=== PATIENT | female | born 1945 | race Caucasian/White ===

== ENCOUNTER 2018-03-04 23:38 | Inpatient (IN) | payer MEDICARE, OTHER ==
[~2018-03-04] VITALS: Ht 165.1 cm; Wt 86.8 kg
[~2018-03-04 23:38] MED LIST: ACET-1600 PO; ASPI325T17 PO; GABA300C10 PO; GABA600T2 PO; HYDR-3240 PO
[2018-03-05] MEDS ORDERED: SODIUM CHLORIDE 0.9% 1,000ML IVBOLUS ONE (00:30)
[2018-03-05] MEDS ORDERED: FAMOTIDINE 20 MG/2 ML IVP ONE (00:30)
[2018-03-05] MEDS ORDERED: ONDANSETRON ODT 4 MG PO ONE (00:30)
[2018-03-05] MEDS ORDERED: SODIUM CHLORIDE FLUSH 10ML SYR IVF ONE (00:30)
[2018-03-05 00:48] LABS: BASOPHILS # (AUTO) 0.05 x10^3/uL (0-0.1); BASOPHILS % (AUTO) 0 % (0-1); EOSINOPHILS # (AUTO) 0.04 x10^3/uL (0-0.4); EOSINOPHILS % (AUTO) 0 % (1-7); LYMPHOCYTES # (AUTO) 0.92 x10^3/uL (1-3.4); LYMPHOCYTES % (AUTO) 7 % (22-44); MD NO; MEAN CORPUSCULAR HEMOGLOBIN 30.4 pg (27.0-34.8); MEAN CORPUSCULAR HGB CONC 33.5 g/dL (32.4-35.8); MEAN CORPUSCULAR VOLUME 90.7 fL (80-100); MEAN PLATELET VOLUME 7.9 fL (7.4-10.4); MONOCYTES # (AUTO) 0.72 x10^3/uL (0.2-0.8); MONOCYTES % (AUTO) 5 % (2-9); NEUTROPHILS # (AUTO) 12.04 x10^3/uL (1.8-6.8); NEUTROPHILS % (AUTO) 87 % (42-75); PLATELET COUNT 311 x10^3/uL (130-400); RED BLOOD COUNT 4.85 x10^6/uL (3.82-5.3); RED CELL DISTRIBUTION WIDTH 13.9 % (9.6-15.2)
[2018-03-05 00:58] LABS: ALANINE AMINOTRANSFERASE 49 U/L (12-78); ALBUMIN 3.7 g/dL (3.4-5.0); ANION GAP 3 mmol/L (5-15); CALCIUM 9.1 mg/dL (8.5-10.1); CHLORIDE 105 mmol/L (98-107); CREATININE 0.88 mg/dL (0.55-1.02)
[2018-03-05 01:00] LABS: ALKALINE PHOSPHATASE 124 U/L (45-117); BILIRUBIN,TOTAL 1.1 mg/dL (0.2-1.0); TOTAL PROTEIN 7.1 g/dL (6.4-8.2)
[2018-03-05] MEDS ORDERED: ONDANSETRON ODT 4 MG ONE (01:28)
[2018-03-05 02:30] LABS: CULTURE INDICATED? YES; MICROSCOPIC INDICATED
[2018-03-05] MEDS ORDERED: FAMOTIDINE 20 MG/2 ML ONE (02:35)
[2018-03-05] MEDS ORDERED: ATOR10TA9 PO (02:47)
[2018-03-05] MEDS ORDERED: SODIUM CHLORIDE 0.9% 1,000 ML IV ONE (02:47)
[2018-03-05] MEDS ORDERED: POLYETHYLENE GLYCOL 17 GM PACKET PO PRN (03:00)
[2018-03-05] MEDS ORDERED: hydrALAzine 20 MG/ML, 1ML IVPush PRN (03:00)
[2018-03-05] MEDS ORDERED: DOCUSATE 100 MG CAPSULE PO PRN (03:00)
[2018-03-05] MEDS ORDERED: OXYcodone IR 5MG TABLET PO PRN (03:00)
[2018-03-05] MEDS ORDERED: SODIUM CHLORIDE FLUSH 10ML SYR IVF PRN (03:00)
[2018-03-05] MEDS ORDERED: PROMETHAZINE 25 MG/ML, 1ML IM PRN (03:00)
[2018-03-05] MEDS ORDERED: LABETALOL 5MG/ML, 20ML IVPush PRN (03:00)
[2018-03-05] MEDS ORDERED: ONDANSETRON 2MG/ML, 2ML IVPush PRN (03:00)
[2018-03-05] MEDS ORDERED: BISACODYL 10 MG SUPP PR PRN (03:00)
[2018-03-05 03:22] VITALS: BP 135/78
[2018-03-05 03:39] LABS: FREE T4 (FREE THYROXINE) 1.38 ng/dL (0.76-1.46); THYROID STIMULATING HORMONE 4.41 mIU/L (0.358-3.740)
[2018-03-05] MEDS: SODIUM CHLORIDE 0.9% 1,000 ML IV SCH ×3 (03:44→20:41)
[2018-03-05 04:02] LABS: HEMOGLOBIN A1C 6.2 % (4.2-6.3)
[2018-03-05] MEDS: HEPARIN 5,000 UNITS/ML, 1ML SQ SCH ×3 (06:09→22:29)
[2018-03-05 09:18] VITALS: BP 143/75
[2018-03-05 10:05] LABS: TRIGLYCERIDES 107 mg/dL (50-200)
[2018-03-05 19:49] VITALS: BP 148/78
[2018-03-05] MEDS: GABAPENTIN 300 MG CAPSULE PO SCH (20:46)
[2018-03-06 01:48] VITALS: BP 129/71
[2018-03-06] MEDS: SODIUM CHLORIDE 0.9% 1,000 ML IV SCH ×2 (02:45→09:47)
[2018-03-06 04:30] LABS: BASOPHILS # (AUTO) 0.01 x10^3/uL (0-0.1); BASOPHILS % (AUTO) 0 % (0-1); EOSINOPHILS % (AUTO) 0 % (1-7); LYMPHOCYTES % (AUTO) 7 % (22-44); MD NO; MEAN CORPUSCULAR HEMOGLOBIN 30.5 pg (27.0-34.8); MEAN CORPUSCULAR HGB CONC 33.8 g/dL (32.4-35.8); MONOCYTES % (AUTO) 9 % (2-9); NEUTROPHILS % (AUTO) 84 % (42-75); PLATELET COUNT 250 x10^3/uL (130-400); RED BLOOD COUNT 4.21 x10^6/uL (3.82-5.3); RED CELL DISTRIBUTION WIDTH 14.2 % (9.6-15.2)
[2018-03-06 04:37] LABS: CHLORIDE 110 mmol/L (98-107)
[2018-03-06 04:46] LABS: ALANINE AMINOTRANSFERASE 206 U/L (12-78); ALBUMIN 2.8 g/dL (3.4-5.0); ALKALINE PHOSPHATASE 218 U/L (45-117); ANION GAP 5 mmol/L (5-15); CALCIUM 7.8 mg/dL (8.5-10.1); CHOLESTEROL, TOTAL 86 mg/dL (140-239); CREATININE 0.81 mg/dL (0.55-1.02); HDL CHOL % 51 % (28-40); HDL CHOLESTEROL (DIRECT) 44 mg/dL (40-60); LDL CHOLESTEROL,CALCULATED 21 mg/dL (54-169); LDL/HDL RATIO 0.5 (0.5-3.0); TOTAL PROTEIN 5.7 g/dL (6.4-8.2); TRIGLYCERIDES 106 mg/dL (50-200); VLDL CHOLESTEROL 21 mg/dL (0-25)
[2018-03-06] MEDS: HEPARIN 5,000 UNITS/ML, 1ML SQ SCH ×3 (05:57→22:45)
[2018-03-06 07:54] VITALS: BP 136/76
[2018-03-06 13:20] VITALS: BP 150/82
[2018-03-06 20:40] VITALS: BP 138/76
[2018-03-06] MEDS: GABAPENTIN 300 MG CAPSULE PO SCH (22:45)
[2018-03-07 02:50] VITALS: BP 146/84
[2018-03-07 04:40] LABS: BASOPHILS % (AUTO) 0 % (0-1); EOSINOPHILS # (AUTO) 0.01 x10^3/uL (0-0.4); EOSINOPHILS % (AUTO) 0 % (1-7); LYMPHOCYTES # (AUTO) 0.68 x10^3/uL (1-3.4); LYMPHOCYTES % (AUTO) 10 % (22-44); MD NO; MEAN CORPUSCULAR HEMOGLOBIN 29.9 pg (27.0-34.8); MEAN CORPUSCULAR VOLUME 90.5 fL (80-100); MONOCYTES # (AUTO) 0.57 x10^3/uL (0.2-0.8); MONOCYTES % (AUTO) 9 % (2-9); NEUTROPHILS # (AUTO) 5.24 x10^3/uL (1.8-6.8); NEUTROPHILS % (AUTO) 81 % (42-75); PLATELET COUNT 227 x10^3/uL (130-400); RED BLOOD COUNT 4.09 x10^6/uL (3.82-5.3); RED CELL DISTRIBUTION WIDTH 13.8 % (9.6-15.2)
[2018-03-07 04:52] LABS: ALANINE AMINOTRANSFERASE 153 U/L (12-78); ALBUMIN 2.7 g/dL (3.4-5.0); ANION GAP 10 mmol/L (5-15); CHLORIDE 110 mmol/L (98-107)
[2018-03-07 04:54] LABS: ALKALINE PHOSPHATASE 312 U/L (45-117); BILIRUBIN,TOTAL 1.2 mg/dL (0.2-1.0); CREATININE 0.68 mg/dL (0.55-1.02); TOTAL PROTEIN 5.9 g/dL (6.4-8.2)
[2018-03-07] MEDS: HEPARIN 5,000 UNITS/ML, 1ML SQ SCH (06:00)
[2018-03-07 06:36] LABS: INTERNATIONAL NORMALIZED RATIO 0.97 (0.93-1.1); PROTHROMBIN TIME 10.1 Seconds (9.6-11.5)
[2018-03-07 07:06] VITALS: BP 149/76
[2018-03-07] MEDS ORDERED: LACTATED RINGERS 1,000 ML IV SCH (07:30)
[2018-03-07 12:35] VITALS: BP 159/88
[2018-03-07 13:33] VITALS: BP 112/73
[2018-03-07] MEDS ORDERED: FENTANYL PF 250 MCG/5ML ONE (17:01)
[2018-03-07] MEDS ORDERED: SUCCINYLCHOLINE 20 MG/ML, 10ML ONE (17:02)
[2018-03-07] MEDS ORDERED: ROCURONIUM 10MG/ML,5ML ONE (17:02)
[2018-03-07] MEDS ORDERED: PROPOFOL 10 MG/ML, 20ML ONE (17:02)
[2018-03-07] MEDS ORDERED: THROMBIN 5,000 UNIT VIAL TP ONE (17:25)
[2018-03-07] MEDS ORDERED: BUPIVACAINE/PF-EPI 0.5% 1:200K ONE (17:25)
[2018-03-07] MEDS ORDERED: PROPOFOL 50 ML ONE (17:29)
[2018-03-07] MEDS ORDERED: CEFAZOLIN 1,000 MG ONE (17:37)
[2018-03-07] MEDS ORDERED: DEXAMETHASONE 4 MG/ML, 1ML ONE (17:37)
[2018-03-07] MEDS ORDERED: OXYcodone 5 MG/5 ML ORAL.SOL UDC PO PRN (18:30)
[2018-03-07] MEDS ORDERED: ONDANSETRON ODT 8 MG PO PRN (18:30)
[2018-03-07] MEDS ORDERED: PROCHLORPERAZINE 5 MG/ML, 2ML IV PRN (18:30)
[2018-03-07] MEDS ORDERED: MORPHINE SULFATE 4 MG/ML, 1ML IVPush PRN (18:30)
[2018-03-07] MEDS ORDERED: ACETAMINOPHEN 325 MG TABLET PO PRN (18:30)
[2018-03-07] MEDS ORDERED: DIPHENHYDRAMINE 50 MG/ML, 1ML IVPush PRN (18:30)
[2018-03-07] MEDS ORDERED: EPHEDRINE 50 MG/ML, 1ML IM PRN (18:30)
[2018-03-07] MEDS ORDERED: EPHEDRINE 50 MG/ML, 1ML IVPush PRN (18:30)
[2018-03-07] MEDS ORDERED: PROMETHAZINE 25 MG SUPP PR PRN (18:30)
[2018-03-07] MEDS ORDERED: PROMETHAZINE 25 MG/ML, 1ML IV PRN (18:30)
[2018-03-07] MEDS ORDERED: LABETALOL 5MG/ML, 20ML IV PRN (18:30)
[2018-03-07] MEDS ORDERED: MEPERIDINE/PF 25MG/0.5ML IVPush PRN (18:30)
[2018-03-07] MEDS ORDERED: PROMETHAZINE 12.5 MG SUPP PR PRN (18:30)
[2018-03-07] MEDS ORDERED: MIDAZOLAM 1 MG/ML, 2ML IV PRN (18:30)
[2018-03-07] MEDS ORDERED: FENTANYL PF 100 MCG/2ML ONE (18:41)
[2018-03-07] MEDS ORDERED: OXYcodone 5 MG/5 ML ORAL.SOL UDC ONE (18:41)
[2018-03-07] MEDS ORDERED: ACETAMINOPHEN 650 MG/20.3 ML UDC ONE (18:41)
[2018-03-07] MEDS: FENTANYL PF 100 MCG/2ML IV PRN ×2 (18:46→19:00)
[2018-03-07 19:30] VITALS: BP 141/66
[2018-03-07] MEDS: morphine SULFATE 10 MG/ML, 1ML IVPush PRN (19:45)
[2018-03-07] MEDS ORDERED: OXYcodone/APAP 5/325MG TABLET PO PRN (20:00)
[2018-03-07] MEDS: GABAPENTIN 300 MG CAPSULE PO SCH (21:00)
[2018-03-08 01:43] VITALS: BP 147/77
[2018-03-08] MEDS: morphine SULFATE 10 MG/ML, 1ML IVPush PRN ×2 (02:02→09:39)
[2018-03-08 04:59] LABS: BASOPHILS % (AUTO) 0 % (0-1); EOSINOPHILS % (AUTO) 0 % (1-7); LYMPHOCYTES # (AUTO) 0.49 x10^3/uL (1-3.4); LYMPHOCYTES % (AUTO) 4 % (22-44); MD NO; MEAN CORPUSCULAR HEMOGLOBIN 30.5 pg (27.0-34.8); MEAN CORPUSCULAR HGB CONC 33.6 g/dL (32.4-35.8); MEAN CORPUSCULAR VOLUME 90.8 fL (80-100); MEAN PLATELET VOLUME 8.1 fL (7.4-10.4); MONOCYTES # (AUTO) 0.76 x10^3/uL (0.2-0.8); MONOCYTES % (AUTO) 7 % (2-9); NEUTROPHILS # (AUTO) 10.02 x10^3/uL (1.8-6.8); NEUTROPHILS % (AUTO) 89 % (42-75); PLATELET COUNT 258 x10^3/uL (130-400); RED BLOOD COUNT 4.13 x10^6/uL (3.82-5.3); RED CELL DISTRIBUTION WIDTH 13.8 % (9.6-15.2)
[2018-03-08 05:15] LABS: ALBUMIN 2.6 g/dL (3.4-5.0); ANION GAP 6 mmol/L (5-15); CALCIUM 8.1 mg/dL (8.5-10.1); CHLORIDE 106 mmol/L (98-107)
[2018-03-08 05:19] LABS: CREATININE 0.79 mg/dL (0.55-1.02)
[2018-03-08 05:20] LABS: ALANINE AMINOTRANSFERASE 150 U/L (12-78); ALKALINE PHOSPHATASE 400 U/L (45-117); BILIRUBIN,TOTAL 0.7 mg/dL (0.2-1.0); TOTAL PROTEIN 6.3 g/dL (6.4-8.2)
[2018-03-08] MEDS: ONDANSETRON ODT 4 MG PO PRN ×2 (06:45→10:53)
[2018-03-08] MEDS ORDERED: SODIUM CHLORIDE 0.9% 1,000 ML IV SCH (09:00)
[2018-03-08 09:58] VITALS: BP_SYST 145; BP_SYST 148; BP_DIAS 79; BP_DIAS 80; BP_DIAS 81
[2018-03-08 15:57] VITALS: BP 151/81
[2018-03-08 19:15] VITALS: BP 150/82
[2018-03-08] MEDS: GABAPENTIN 300 MG CAPSULE PO SCH (21:00)
[2018-03-09 00:39] VITALS: BP 118/68
[2018-03-09 08:00] VITALS: BP 132/77
[2018-03-09 08:22] LABS: ANION GAP 4 mmol/L (5-15); CALCIUM 8.1 mg/dL (8.5-10.1); CHLORIDE 102 mmol/L (98-107); CREATININE 0.72 mg/dL (0.55-1.02)
[2018-03-09 08:24] LABS: BASOPHILS # (AUTO) 0.02 x10^3/uL (0-0.1); BASOPHILS % (AUTO) 0 % (0-1); EOSINOPHILS # (AUTO) 0.01 x10^3/uL (0-0.4); EOSINOPHILS % (AUTO) 0 % (1-7); LYMPHOCYTES # (AUTO) 0.91 x10^3/uL (1-3.4); LYMPHOCYTES % (AUTO) 13 % (22-44); MD SCAN; MEAN CORPUSCULAR HEMOGLOBIN 30.2 pg (27.0-34.8); MEAN CORPUSCULAR HGB CONC 33.5 g/dL (32.4-35.8); MEAN PLATELET VOLUME 7.6 fL (7.4-10.4); MONOCYTES # (AUTO) 0.65 x10^3/uL (0.2-0.8); MONOCYTES % (AUTO) 10 % (2-9); NEUTROPHILS # (AUTO) 5.21 x10^3/uL (1.8-6.8); NEUTROPHILS % (AUTO) 77 % (42-75); PLATELET COUNT 290 x10^3/uL (130-400); RED BLOOD COUNT 4.09 x10^6/uL (3.82-5.3); RED CELL DISTRIBUTION WIDTH 14.1 % (9.6-15.2)
[2018-03-09] MEDS ORDERED: POTASSIUM CHLORIDE 20 MEQ TAB.ER.PRT PO ONE (09:00)
[2018-03-09 13:24] LABS: ALBUMIN 2.8 g/dL (3.4-5.0)
[2018-03-09 13:28] LABS: BILIRUBIN, DIRECT 0.5 mg/dL (0.1-0.2); BILIRUBIN,INDIRECT 0.5 mg/dL (0.0-2.0); TOTAL PROTEIN 6.6 g/dL (6.4-8.2)
[2018-03-09] MEDS ORDERED: OXYC-302 PO (15:48)
[2018-03-09] MEDS ORDERED: POLY17PO5 PO (15:54)
== END 2018-03-09 16:17 | disposition home or self-care (01) | DRG 417 ==
LOC: ED 03-05 02:27 → 3NW 03-05 02:51 → DCLOUNGE 03-09 15:42
PROVIDERS: ADMIT Internal Medicine; ATTEND Internal Medicine
PROC: 0FT44ZZ Resection of Gallbladder, Percutaneous Endoscopic Approach (ICD-10-PCS; principal; 2018-03-07 17:30)
DX: K81.0 Acute cholecystitis (principal); K85.00 Idiopathic acute pancreatitis without necrosis or infection; J98.11 Atelectasis; E78.5 Hyperlipidemia, unspecified; E03.9 Hypothyroidism, unspecified; I10 Essential (primary) hypertension; R74.0 Nonspecific elevation of levels of transaminase and lactic acid dehydrogenase [LDH]; G89.29 Other chronic pain; Z96.659 Presence of unspecified artificial knee joint; K76.0 Fatty (change of) liver, not elsewhere classified
CPT/HCPCS: 36415; 74021; 74181; 76700; 80048; 80053; 80061; 80076; 81001; 83036; 83690; 83735; 84439; 84443; 84478; 85025; 85610; 87086; 88304; 96374; 99285; G0378; J0690; J1100; J1644; J2405; J2704; J3010; Q0162; J0330; J2270; J7030; J7120; S0028